=== PATIENT | female | born 1970 | race Caucasian/White ===

== ENCOUNTER → 2017-12-18 | Outpatient (CLI) | payer OTHER ==
[~2017-12-18] MED LIST: ALLEGRA ALLERG180 MG PO; GLUCOPHAGE500 MG PO; NORCO 5-325 TA1 EACH PO; NORCO 7.5-3251 EACH PO; SYNTHROID125 MCG PO
== END ==
LOC: M.MRI 12-11 17:30
DX: S83.241D Other tear of medial meniscus, current injury, right knee, subsequent encounter (principal); M17.11 Unilateral primary osteoarthritis, right knee; M25.461 Effusion, right knee; M94.261 Chondromalacia, right knee; M25.761 Osteophyte, right knee; X58.XXXD Exposure to other specified factors, subsequent encounter

== ENCOUNTER → 2018-12-23 | Outpatient (CLI) | payer OTHER | LOC: M.MRI 09:14 | DX: S83.232A Complex tear of medial meniscus, current injury, left knee, initial encounter (principal); M25.462 Effusion, left knee; W19.XXXA Unspecified fall, initial encounter; Y93.89 Activity, other specified; Y92.89 Other specified places as the place of occurrence of the external cause; Y99.8 Other external cause status ==

== ENCOUNTER → 2020-03-11 | Outpatient (CLI) | payer OTHER ==
[2020-03-13 22:13] LABS: CALCIUM 9.3 mg/dL (8.5-10.1)
== END ==
LOC: M.LAB 15:16
PROVIDERS: ATTEND Internal Medicine Endocrinology, Diabetes & Metabolism
DX: C73 Malignant neoplasm of thyroid gland (principal); E55.9 Vitamin D deficiency, unspecified

== ENCOUNTER → 2021-03-08 | Outpatient (CLI) | payer OTHER ==
[~2021-03-08] MED LIST changes: +MELOXICAM15 MG PO
== END ==
LOC: M.PC 09:30
PROVIDERS: ATTEND Physical Medicine & Rehabilitation
DX: M50.123 Cervical disc disorder at C6-C7 level with radiculopathy (principal); M47.22 Other spondylosis with radiculopathy, cervical region; M79.18 Myalgia, other site; M79.601 Pain in right arm